=== PATIENT | female | born 1970 | race Caucasian/White ===

== ENCOUNTER 2019-08-09 11:24 | Day surgery (SDC) | payer OTHER ==
[2019-08-09 11:57] VITALS: TEMP 98.1
[2019-08-09] MEDS ORDERED: LACTATED RINGERS 1,000 ML IV ONE (12:00)
[2019-08-09] MEDS ORDERED: PROPOFOL 10 MG/ML 20 ML VIAL IV ONE (12:51)
--- NOTE | 2019-08-09 13:39 | P.PCN ---
Date of Procedure: 08/09/19 Description of Procedure: Brief history: Patient is a pleasant scheduled for an elective upper endoscopy as well as colonoscopy as a part of evaluation of diarrhea, GERD, screening for malignant neoplasm colon. No prior endoscopy reported. Reports increased frequency of bowel movements over the past few months. Denies any blood per rectum. Does report a history of Crohn's and colon cancer in her father. Procedure performed: Esophagogastroduodenoscopy with biopsy Colonoscopy with polypectomy and biopsy Estimated blood loss: Minimal. Preoperative diagnosis: Diarrhea, GERD, screening for malignant neoplasm in the colon, no prior endoscopies reported Anesthesia: MAC Procedure: After informed consent was obtained from the patient was brought into the endoscopy unit and IV sedation was administered by anesthesia under continuous monitoring. Initially upper endoscopy was done. The Olympus GF 190 video endoscope was inserted into the mouth and esophagus intubated without any difficulty and was gradually advanced into the stomach and duodenum and carefully examined. The bulb and second part of the duodenum appeared normal, with biopsies taken. The scope was then withdrawn into the stomach adequately insufflated with air and upon careful examination the antrum and body, cardia and fundus appeared normal, except for some mild scattered erythema in the antrum and body suggestive of mild gastritis with biopsies taken. The scope was then withdrawn into the esophagus. The GE junction was located at 36 cm to the incisors, with a 3 cm hiatal hernia noted. LA grade C esophagitis noted in the distal esophagus, biopsied. Patient tolerated the procedure well. At this time the patient continued to remain sedation. Initial digital rectal examination was normal. Olympus CF 190 video colonoscope was then inserted into the rectum and gradually advanced to the cecum without any difficulty. The terminal ileum was intubated and appeared normal with biopsies taken. Careful examination was performed as the scope was gradually being withdrawn. The prep was excellent. The cecum, ascending colon, transverse colon, descending colon, sigmoid colon and rectum appeared grossly normal, it was however somewhat dilated with minimal blunting of vascular markings with biopsies of the right and left colon taken due to complaints of diarrhea. Diminutive 1 mm transverse colon polyp removed with cold forcep polypectomy. Retroflexion was performed in the rectum and no lesions were noted. Patient tolerated the procedure well. Impression: 1. Mild gastritis antrum and body, biopsied. LA grade C esophagitis biopsied. Moderate size hiatal hernia. Duodenal biopsies. 2. Random biopsies of the right colon, left colon and terminal ileum in the setting of complaints of diarrhea. Diminutive transverse colon polyp removed with cold forcep polypectomy. Recommendations: Findings of this examination were discussed with the patient as well as her sister. Okay to resume diet. Okay to resume other medical management. Await pathology from biopsies. Patient provided with a prescription for omeprazole 20 mg daily in the setting of suspected reflux esophagitis with esophagitis noted on EGD. Would recommend repeat colonoscopy in 5 years given family history of colon cancer.
[2019-08-09 13:57] VITALS: RESP 18
[2019-08-09 14:00] VITALS: BP 122/85; PULSE 71
== END 2019-08-09 14:29 | disposition home or self-care (01) ==
LOC: ORWHC2ENDO 11:24
PROVIDERS: ATTEND Internal Medicine
DX: K21.0 Gastro-esophageal reflux disease with esophagitis (principal); Z12.11 Encounter for screening for malignant neoplasm of colon; D12.3 Benign neoplasm of transverse colon; K29.50 Unspecified chronic gastritis without bleeding; K44.9 Diaphragmatic hernia without obstruction or gangrene; F17.210 Nicotine dependence, cigarettes, uncomplicated
CPT/HCPCS: 81025; 88305; 45380; 43239; J2704